=== PATIENT | female | born 1990 | race Caucasian/White ===

== ENCOUNTER 2022-02-25 06:29 | Day surgery (SDC) | payer BC ==
[~2022-02-25 06:29] MED LIST: Lactated Ringers 1,000 ML IV SCH; Sodium Chloride 0.9% 10 ML Syringe FLUSH PRN; Sodium Chloride 0.9% 2.5 ML Syringe FLUSH PRN; Sodium Chloride 0.9% 20 ML SDV IV PRN
[2022-02-25] MEDS ORDERED: Lidocaine 2% 5 ML SDV ONE (07:37)
[2022-02-25] MEDS ORDERED: fentaNYL 100 MCG/2 ML SDV ONE (07:38)
[2022-02-25] MEDS ORDERED: Propofol 200 MG/20 ML SDV ONE (07:38)
== END 2022-02-25 09:30 | disposition home or self-care (01) ==
LOC: MW.SDS 06:29
PROVIDERS: ATTEND Surgery
DX: K62.5 Hemorrhage of anus and rectum (principal); R19.4 Change in bowel habit; F41.9 Anxiety disorder, unspecified; E66.9 Obesity, unspecified; Z79.899 Other long term (current) drug therapy; Z98.890 Other specified postprocedural states; Z68.32 Body mass index [BMI] 32.0-32.9, adult
CPT/HCPCS: 45380; 81025; J2704; J3010; J7120